=== PATIENT | male | born 1970 | race Caucasian/White ===

== ENCOUNTER 2017-04-10 09:43 | Emergency (ER) | payer OTHER ==
[2017-04-10 09:46] VITALS: BP_SYST 142; BP_SYST 170; BP_DIAS 100; BP_DIAS 91; PULSE 84; RESP 18; TEMP 98; O2SAT 96
--- NOTE | 2017-04-10 10:08 | PD ---
HPI Chief Complaint: Bleeding Time Seen by Provider: 10:02 Travel History International Travel<30 days: No Contact w/Intl Traveler<30days: No Traveled to known affect area: No History of Present Illness HPI 47yo M with PMH of varicose vein and HTN presents to the ED with c/o bleeding from his varicose vein. Pt states he was standing at work at about 8:20am and started feeling wet in his right shoe. Fire applied pressure on the bleeding site in his right foot. States this has happened once in 2014 and they glue the site of bleeding and it stopped. Denies any fever, chest pain, sob, n/v, abdominal pain, focal weakness, numbness or trauma. PFSH Social History Alcohol Use: Yes Tobacco Use: No Substance Use: No Allergies-Medications (Allergen,Severity, Reaction): Coded Allergies: No Known Allergies (Unverified , 04/10/17) Review of Systems Except as stated in HPI: all other systems reviewed are Neg Physical Exam Narrative GENERAL: 47yo M not in distress. SKIN: Focused skin assessment warm/dry. HEAD: Atraumatic. Normocephalic. CARDIOVASCULAR: Regular rate and rhythm. No murmur appreciated. RESPIRATORY: No accessory muscle use. Clear to auscultation. Breath sounds equal bilaterally. GASTROINTESTINAL: Abdomen soft, non-tender, nondistended. MUSCULOSKELETAL:Right foot: +Varicose vein, stopped bleeding. Clot in lateral dorsum of foot in one of the varicose vein. DP 2+. Sensation intact. FROM right ankle. NEUROLOGICAL: Awake and alert. No obvious cranial nerve deficits. Motor grossly within normal limits. Normal speech. PSYCHIATRIC: Appropriate mood and affect; insight and judgment normal. Data Data Last Documented VS Vital Signs Date Time Temp Pulse Resp B/P Pulse Ox O2 Delivery O2 Flow Rate FiO2 04/10/17 09:46 98.0 84 18 142/91 96 MDM Medical Decision Making Medical Screen Exam Complete: Yes Emergency Medical Condition: Yes Differential Diagnosis Varicose vein bleeding Narrative Course 47yo M with c/o bleeding from varicose vein that has already stopped on its own. VS stable. Pt's bp is 142/91, pt states he has not taken his bp meds in 2 months and does not know what he takes but will call PMD and follow up as outpatient. No complaints or symptoms. Pt has been observed in the ED without further bleeding. Return precautions given. Diagnosis Primary Impression: Bleeding from varicose vein Qualified Code: I83.891 - Bleeding from varicose vein, right Patient Instructions: General Instructions Departure Forms: Tests/Procedures Additional Instructions: Please follow up with your PMD in 1-2 days regarding your blood pressure treatment. Return to the ED if symptoms worsen. Med/Other Pt SpecificInfo: No Change to Meds Disposition: 01 DISCHARGE HOME Condition: Stable Eugenie Peacock DO April 10, 2017 10:08
[2017-04-10 10:31] VITALS: BP 145/92
== END 2017-04-10 10:41 | disposition home or self-care (01) ==
LOC: NEPC 09:43
DX: I83.891 Varicose veins of right lower extremity with other complications (principal); I10 Essential (primary) hypertension; X50.1XXA Overexertion from prolonged static or awkward postures, initial encounter; Y93.89 Activity, other specified; Y92.9 Unspecified place or not applicable; Y99.0 Civilian activity done for income or pay
CPT/HCPCS: 99283